=== PATIENT | male | born 1995 | race Two or more races ===

== ENCOUNTER 2019-01-16 18:24 | Emergency (ER) | payer MEDICAID, OTHER ==
[~2019-01-16] VITALS: Ht 180.3 cm; Wt 67.1 kg
[2019-01-16] MEDS ORDERED: SODIUM CHLORIDE 0.9% 500 ML IV ONE (18:36)
[2019-01-16] MEDS ORDERED: MORPHINE SULF INJ 2 MG/ML SYRINGE 1ML IV ONE (18:45)
[2019-01-16 19:17] LABS: Hematocrit 48.4 % (41.0-53.0); Hemoglobin 16.3 g/dL (13.5-17.5); Mean Corpuscular Hemoglobin 28.7 pg (28.0-32.0); Mean Corpuscular Hgb Conc. 33.6 g/dL (32.0-36.0); Mean Corpuscular Volume 85.4 fL (80.0-100.0); Platelet Count (auto) 273 10^3/uL (140-450); Red Blood Cells 5.67 10^6/uL (4.5-5.90); Red Cell Distribution Width 12.8 % (11.8-14.3)
[2019-01-16 19:22] LABS: Basophils % (manual) 0 (0.0-2.0); Blast Cells 0; Metamyelocytes % 0; Myelocytes % 0; Promyelocytes % 0; Reactive Lymphocytes 0
[2019-01-16 19:27] LABS: INR 0.99 (0.9-1.15); Partial Thromboplastin Time 28.6 sec (23.78-33.04); Prothrombin Time 10.6 sec (9.27-12.13)
[2019-01-16 19:27] LABS: Urine Bacteria NONE SEEN /hpf (None Seen); Urine Blood Negative /uL (Negative); Urine Specific Gravity 1.006 (1.001-1.035); Urine WBC 1 /hpf (0 - 3)
[2019-01-16 19:34] LABS: Albumin 4.3 g/dL (3.4-5.0); Potassium 3.6 mmol/L (3.5-5.1)
[2019-01-16 19:37] LABS: BUN/Creatinine Ratio 14.2; Bilirubin, Total 0.4 mg/dL (0.2-1.0)
[2019-01-16 20:21] LABS: Band Neutrophils % (manual) 2; Eosinophils % (manual) 23 (0-7); Lymphocytes % (manual) 30 (10.0-50.0); Monocytes % (manual) 7 (0-12)
[2019-01-16 22:59] VITALS: BP 117/65
== END 2019-01-16 23:00 | disposition home or self-care (01) ==
LOC: ER 18:35
DX: K59.00 Constipation, unspecified (principal)
CPT/HCPCS: 36415; 74176; 80053; 81001; 83690; 85007; 85027; 85610; 85730; 94761; 96374; 99284; J2270; J7040

== ENCOUNTER → 2022-01-04 | Outpatient (CLI) | payer MEDICAID ==
[2022-01-04 07:45] LABS: Basophils # (auto) 0 10 ^3/uL (0-0.2); Basophils % (auto) 0.7 % (0.0-2.0); Eosinophils # (auto) 0.7 10 ^3/uL (0-0.8); Eosinophils % (auto) 12.9 % (0.0-7.0); Hemoglobin 14.8 g/dL (13.5-17.5); Lymphocytes # (auto) 2.2 10 ^3/uL (0.4-5.4); Lymphocytes % (auto) 40.8 % (10.0-50.0); Mean Corpuscular Hemoglobin 28.9 pg (28.0-32.0); Mean Corpuscular Hgb Conc. 34.5 g/dL (32.0-36.0); Mean Corpuscular Volume 83.8 fL (80.0-100.0); Monocytes # (auto) 0.3 10 ^3/uL (0-1.3); Neutrophils # (auto) 2.2 10 ^3/uL (1.6-8.6); Neutrophils % (auto) 40.6 % (37.0-80.0); Nucleated Red Blood Cells % 0.1 %; Red Blood Cells 5.13 10^6/uL (4.5-5.90); Red Cell Distribution Width 12.9 % (11.8-14.3); White Blood Cell 5.4 10^3/uL (4.4-10.8)
[2022-01-04 08:45] LABS: Potassium 4.6 mmol/L (3.5-5.1)
[2022-01-04 08:53] LABS: Albumin 3.9 g/dL (3.4-5.0); BUN/Creatinine Ratio 12.9; Bilirubin, Total 0.6 mg/dL (0.2-1.0); Total Protein 7.5 g/dL (6.4-8.2)
== END | disposition home or self-care (01) ==
LOC: LAB 07:22
PROVIDERS: ATTEND Student in an Organized Health Care Education/Training Program
DX: Z00.00 Encounter for general adult medical examination without abnormal findings (principal)
CPT/HCPCS: 36415; 80053; 85025

== ENCOUNTER 2022-10-27 21:29 | Emergency (ER) | payer MEDICAID ==
[~2022-10-27] VITALS: Ht 182.9 cm; Wt 79.5 kg
[2022-10-27] MEDS ORDERED: FLUORESCEIN SOD OPTH TEST STRIP LEFTEYE ONE (22:15)
[2022-10-27] MEDS ORDERED: TETRACAINE HCL 0.5% OPTH(EYE) SOLN 4ML LEFTEYE ONE (22:15)
[2022-10-27] MEDS ORDERED: methylPREDNISolone SOD SUCC 125 MG/2 ML VL IM ONE (22:45)
[2022-10-27] MEDS ORDERED: cefTRIAXone SOD 1,000 MG VL IM ONE (22:45)
[2022-10-27] MEDS ORDERED: AMOX-277 PO (22:49)
[2022-10-27] MEDS ORDERED: CLIN300C8 PO (22:49)
[2022-10-27 23:20] VITALS: BP 117/67
== END 2022-10-27 23:20 | disposition home or self-care (01) ==
LOC: ER 21:36
DX: L03.213 Periorbital cellulitis (principal); J45.909 Unspecified asthma, uncomplicated; Z79.2 Long term (current) use of antibiotics; Z91.013 Allergy to seafood
CPT/HCPCS: 96372; 99284; J0696; J2930

== ENCOUNTER 2022-12-11 14:12 | Emergency (ER) | payer MEDICAID ==
[~2022-12-11] VITALS: Ht 185.4 cm; Wt 88.0 kg
[~2022-12-11 14:12] MED LIST: AMOX-277 PO; CLIN300C8 PO
[2022-12-11 15:00] VITALS: BP 116/80
[2022-12-11 15:16] LABS: Urine Bacteria NONE SEEN /hpf (None Seen); Urine Blood Negative /uL (Negative); Urine Mucus FEW (None Seen); Urine Specific Gravity 1.024 (1.001-1.035); Urine WBC 1 /hpf (0 - 3)
[2022-12-11 15:23] LABS: Basophils # (auto) 0 10 ^3/uL (0-0.2); Basophils % (auto) 0.6 % (0.0-2.0); Eosinophils # (auto) 0.4 10 ^3/uL (0-0.8); Hematocrit 46.3 % (41.0-53.0); Hemoglobin 15.2 g/dL (13.5-17.5); Lymphocytes # (auto) 2.4 10 ^3/uL (0.4-5.4); Lymphocytes % (auto) 39.9 % (10.0-50.0); Mean Corpuscular Hemoglobin 27.7 pg (28.0-32.0); Mean Corpuscular Hgb Conc. 32.8 g/dL (32.0-36.0); Mean Corpuscular Volume 84.6 fL (80.0-100.0); Monocytes # (auto) 0.5 10 ^3/uL (0-1.3); Monocytes % (auto) 8.1 % (0.0-12.0); Neutrophils # (auto) 2.8 10 ^3/uL (1.6-8.6); Neutrophils % (auto) 45.4 % (37.0-80.0); Nucleated Red Blood Cells % 0.4 %; Red Blood Cells 5.47 10^6/uL (4.5-5.90); Red Cell Distribution Width 13.2 % (11.8-14.3); White Blood Cell 6.1 10^3/uL (4.4-10.8)
[2022-12-11 15:42] LABS: Albumin 4.3 g/dL (3.4-5.0); BUN/Creatinine Ratio 11.6 (10.0-20.0); Bilirubin, Total 0.3 mg/dL (0.2-1.0); Calcium 9.5 mg/dL (8.5-10.1); Total Protein 7.8 g/dL (6.4-8.2)
== END 2022-12-11 16:19 | disposition home or self-care (01) ==
LOC: ER 14:12
DX: K42.9 Umbilical hernia without obstruction or gangrene (principal); K40.20 Bilateral inguinal hernia, without obstruction or gangrene, not specified as recurrent; J45.909 Unspecified asthma, uncomplicated; Z91.013 Allergy to seafood
CPT/HCPCS: 36415; 74176; 80053; 81001; 83690; 85025

== ENCOUNTER 2023-01-28 07:56 | Emergency (ER) | payer MEDICAID ==
[~2023-01-28] VITALS: Ht 182.9 cm; Wt 81.6 kg
[~2023-01-28 07:56] MED LIST changes: -AMOX-277 PO; +AMOX875T4 PO; +CLIN300C70 PO; -CLIN300C8 PO
[2023-01-28] MEDS ORDERED: diphenhdrAMINE HCL 50 MG/1 ML VL IM ONE (08:30)
[2023-01-28] MEDS ORDERED: DexAMETHasone SOD PHOS 10MG/1ML VIAL INJ IM ONE (08:30)
[2023-01-28] MEDS ORDERED: FAMOTIDINE 20 MG TAB PO ONE (08:30)
[2023-01-28 08:50] VITALS: BP 113/71
[2023-01-28] MEDS ORDERED: DIPH25CA66 PO ×3 (10:04→14:26)
[2023-01-28] MEDS ORDERED: METH4PAK PO ×3 (10:04→14:26)
[2023-01-28] MEDS ORDERED: FAMO20TA10 PO ×3 (10:04→14:26)
== END 2023-01-28 12:02 | disposition home or self-care (01) ==
LOC: ER 07:56
DX: L50.0 Allergic urticaria (principal); J45.909 Unspecified asthma, uncomplicated; Z91.013 Allergy to seafood; Z88.1 Allergy status to other antibiotic agents
CPT/HCPCS: 87804; 96372; 99284; J1100; J1200

== ENCOUNTER 2023-12-30 08:37 | Day surgery (SDC) | payer MEDICAID ==
[~2023-12-30] VITALS: Ht 180.3 cm; Wt 79.4 kg
[~2023-12-30 08:37] MED LIST changes: -AMOX875T4 PO; -CLIN300C70 PO; +DIPH25CA66 PO; +FAMO20TA10 PO; +METH4PAK PO
[2023-12-30] MEDS ORDERED: MEPERIDINE HCL (25 MG/ML) 1ML VIAL ONE (09:54)
[2023-12-30] MEDS ORDERED: MIDAZOLAM HCL 2MG/2ML 2ml VIAL (1mg/ml) ONE (09:54)
[2023-12-30] MEDS ORDERED: DexAMETHasone SOD PHOS 10MG/1ML VIAL INJ ONE (09:54)
[2023-12-30] MEDS ORDERED: fentaNYL CITRATE 100 MCG/2 ML VL ONE (09:54)
[2023-12-30] MEDS ORDERED: PROPOFOL 10 MG/ML 20 ML IV ONE (09:54)
[2023-12-30 10:35] VITALS: TEMP 97.4; O2SAT 99
[2023-12-30 11:15] VITALS: BP 116/67; PULSE 84; RESP 84; O2SAT 98
== END 2023-12-30 11:27 | disposition home or self-care (01) ==
LOC: GI 08:37
PROVIDERS: ATTEND Internal Medicine Gastroenterology
DX: K62.5 Hemorrhage of anus and rectum (principal); K64.8 Other hemorrhoids; K62.89 Other specified diseases of anus and rectum; J44.9 Chronic obstructive pulmonary disease, unspecified; Z91.013 Allergy to seafood; Z91.09 Other allergy status, other than to drugs and biological substances; Z79.899 Other long term (current) drug therapy; Z98.890 Other specified postprocedural states
CPT/HCPCS: 45380; 88305; J1100; J2175; J2250; J2704; J3010; J7030